=== PATIENT | male | born 1940 | race Caucasian/White ===

== ENCOUNTER 2018-12-13 12:20 | Day surgery (SDC) | payer MEDICARE, OTHER, SELFPAY ==
--- NOTE | 2018-12-13 | PATH_ITS ---
[facility] Accession Number: [id number] . 01 Material submitted: . GE JUNCTION . 02 Diagnosis: Gastroesophageal Junction, Biopsy: Fragments of squamous epithelium with minimal amount of glandular mucosa present. Negative for specialized metaplasia of Mauricio's type esophagus. Negative for dysplasia and malignancy. Negative for squamous intraepithelial eosinophils. MRV/12/14/2018 . 02 Electronically signed: . Gregorio Powers MD, Pathologist NPI- [id number] . 01 Gross description: . Received one formalin-filled container labeled with the patient's name and labeled GE junction. The specimen consists of a 0.3 cm portion of tissue. Entirely submitted in one cassette. ([facility]:[id number]) /[facility] . 02 Pathologist provided ICD-10: R13.10 . 02 CPT . 095911 Performed at: 01 [facility] [address], [place], [place] [id number] MD Jossue Stokes MD Phone: [phone] Performed at: 02 [facility] [address] [place], [place] [id number] MD Soledad Bates MD Phone: [phone]
--- NOTE | 2018-12-13 12:39 | PM.HP.1 ---
History of Present Illness Date Patient Seen: 12/13/18 Chief complaint: EGD Narrative: 78-year-old male who I had initially seen on 10/31/2018 due to esophageal dysphagia. Please refer to my note for further details. The patient has had more solid dysphagia rather than liquid dysphagia. Patient History Medical History Colon polyps (Acute) Constipation (Acute) Diverticulosis (Acute) Esophageal dysphagia (Acute) Hyperlipidemia (Acute) Hypothyroidism (Acute) Surgical History History of colonoscopy (Acute) History of skin surgery (Acute) Meds Home Medications Medication Instructions Recorded Confirmed Type Probiotic 1 cap PO DAILY 12/12/18 12/12/18 History amitriptyline 25 mg PO BEDTIME 12/12/18 12/12/18 History lactulose 15 ml PO DAILY 12/12/18 12/12/18 History levothyroxine [Synthroid] 100 mcg PO DAILY 12/12/18 12/12/18 History linaclotide [Linzess] 72 mcg PO DAILY 12/12/18 12/12/18 History multivitamin 1 tab PO DAILY 12/12/18 12/12/18 History naproxen sodium [Aleve] 440 mg PO BID 12/12/18 12/12/18 History sildenafil [Viagra] 100 mg PO PRN PRN 12/12/18 12/12/18 History simvastatin [Zocor] 10 mg PO DAILY 12/12/18 12/12/18 History Allergies Allergy/AdvReac Type Severity Reaction Status Date / Time tetracycline Allergy Severe Unlisted Verified 12/12/18 14:42 tolnaftate Allergy Severe Unlisted Verified 12/12/18 14:42 Exam Narrative Exam Narrative: General: Patient is well developed, not in apparent distress Cardiovascular: Regular rate and rhythm, no murmurs, rubs, or gallops; no evidence of edema; no palpable abdominal aortic aneurysm Gastrointestinal: Normoactive bowel sounds, soft, nontender, nondistended, no rebound tenderness, no hepatosplenomegaly, no evidence of hernia Assessment & Plan Assessment & Plan narrative: 78-year-old male with history of esophageal dysphagia who is here for an upper endoscopy with possible dilation. Regarding the procedure(s), the risks and potential complications, benefits, and alternatives (including not doing the procedure) were discussed with the patient. The risks include but are not limited to bleeding, splenic injury, infection, perforation which may require surgical intervention, missed lesions, and adverse reactions to sedative medicines. After a question and answer period, the patient agreed to proceed with the procedure(s) and gives informed consent.
[2018-12-13 12:43] VITALS: BMI 25.8
[2018-12-13 12:49] VITALS: BP 139/86; PULSE 88; RESP 15; TEMP 36.3; O2SAT 99
[2018-12-13] MEDS: SODIUM CHLORIDE 0.9% 1,000 ML 200 ML IV (12:58)
--- NOTE | 2018-12-13 13:55 | P.OP.ENDO_ITS ---
Operative Date/Time/Diagnoses Date of procedure: 12/13/18 Procedure Notes Procedure in detail: Surgeon: Tobias Kelly MD Procedure: Esophagogastroduodenoscopy with biopsy and Savary dilation Preoperative diagnosis: Esophageal dysphagia Postoperative diagnosis: LA grade A reflux esophagitis status post biopsy, Schatzki ring status post dilation Medications: Conscious sedation using 5 mg IV of Midazolam and 100 mcg IV of Fentanyl Preanesthesia Assessment An H and P was performed/updated and the Px?s ASA class is 2. The procedure was discussed in detail with the patient. The potential risks and complications including infection, bleeding, missed lesions, perforation, need for surgery in case of perforation, prolonged hospital stay, and were explained. A brief question and answer period was allotted and once all questions were answered, informed consent was obtained. The patient was brought back to the procedure room and placed on standard monitoring. The patient?s vital signs were monitored continuously throughout the entire procedure. Prior to starting, a timeout was performed to confirm the patient?s identity, allergies, medications, and procedure. Procedure in detail The patient was placed in left lateral decubitus position and a bite block was inserted. The tip of the upper endoscope was placed into the mouth and advanced without difficulty under direct visualization into the esophagus. Esophagus: LA grade A reflux esophagitis noted at the GE junction status post biopsy. There was note of a Schatzki ring near the GE junction with a luminal diameter of around 15 mm. The decision was made to perform a Savary dilation using a 48 Estonian dilator which had mild resistance and then a 51 Estonian dilator with moderate resistance. Reinsertion of the upper endoscope was performed which revealed disruption of the Schatzki ring Stomach: No mucosal abnormalities were seen throughout the entire stomach Duodenum: The mucosa appeared normal up to the 2nd portion The patient tolerated the procedure well and will be brought back to the recovery area to be discharged once criteria are met. The total physician intraservice time was 13 min. Complications There were no complications and estimated blood loss was minimal. Recommendations: Resume previous diet Continue outPx medications Use ranitidine 150 mg OTC daily 30 min prior to breakfast for 2 months Follow up pathology results Repeat EGD with dilation if with persistent dysphagia Called to make a office follow up if with persistent symptoms An emergency contact number was given to the patient for any complications related to the procedure
[2018-12-13] MEDS: MIDAZOLAM 5 MG/5 ML VIAL IV (13:56)
[2018-12-13] MEDS: fentaNYL 250 MCG/5 ML INJ IV (13:57)
[2018-12-13 14:10] VITALS: BP 120/76; PULSE 73; RESP 11; O2SAT 95
[2018-12-13 14:15] VITALS: BP 112/72; PULSE 72; RESP 16; O2SAT 93
--- NOTE | 2018-12-13 14:15 | PM.DS.1 ---
History of Present Illness Chief complaint: EGD Narrative: 78-year-old male who I had initially seen on 10/31/2018 due to esophageal dysphagia. Please refer to my note for further details. The patient has had more solid dysphagia rather than liquid dysphagia. Discharge Providers Discharge Date: 12/13/18 Primary care physician: Kye Zuluaga MD Discharge provider: Tobias Kelly MD Exam Vital Signs (past 8 hours): - 12/13/18 12:49 12/13/18 14:10 Temperature 97.4 F L Pulse Rate 88 73 Respiratory Rate 15 11 L Blood Pressure 139/86 120/76 Pulse Oximetry 99 95 Oxygen Delivery Method Room Air Narrative Exam Narrative: General: Patient is well developed, not in apparent distress Cardiovascular: Regular rate and rhythm, no murmurs, rubs, or gallops; no evidence of edema; no palpable abdominal aortic aneurysm Gastrointestinal: Normoactive bowel sounds, soft, nontender, nondistended, no rebound tenderness, no hepatosplenomegaly, no evidence of hernia Discharge Plan Discharge Plan Patient Disposition: Home Discharge Med Rec/Prescriptions Prescriptions: Continued multivitamin Tablet 1 tab PO DAILY RF: 0 simvastatin [Zocor] 10 mg Tablet 10 mg PO DAILY RF: 0 sildenafil [Viagra] 100 mg Tablet 100 mg PO PRN PRN (Reason: Sexual Activity) RF: 0 levothyroxine [Synthroid] 100 mcg Tablet 100 mcg PO DAILY RF: 0 amitriptyline 25 mg Tablet 25 mg PO BEDTIME RF: 0 naproxen sodium [Aleve] 220 mg Capsule 440 mg PO BID PRN (Reason: Pain (Scale Score 4-6)) RF: 0 lactulose 10 gram/15 mL (15 mL) Solution 15 ml PO DAILY RF: 0 Linzess 72 mcg Capsule 72 mcg PO DAILY RF: 0 Probiotic 1 cap PO DAILY RF: 0 Follow up/Referrals: Kye Zuluaga MD [Primary Care Provider] - Discharge Orders: Discharge (Order); Ordered 12/13/18 Ordered By: Tobias Kelly Provider Discharge Instructions Diet: Diet as Tolerated Visit Report/Discharge Packet Stand Alone Forms: EGD Result: [facility] Discharge Data Primary Care Provider: Kye Zuluaga Attending Provider: Tobias Kelly
[2018-12-13 14:21] VITALS: BP 110/73; PULSE 70; RESP 20; O2SAT 93
[2018-12-13 14:38] VITALS: BP 106/71; PULSE 68; O2SAT 94
[2018-12-13 14:40] VITALS: BP 117/77; PULSE 78; RESP 16; TEMP 36
--- NOTE | 2018-12-13 15:02 | SUR.PHASEII ---
Tolerated ice chips, water, coffee and crackers without swallowing issues. Awake and desiring discharge home.
== END 2018-12-13 15:10 | disposition home or self-care (01) ==
PROVIDERS: PCP Family Medicine; Visit Provider Internal Medicine Gastroenterology
PROC: 0DJ08ZZ Inspection of Upper Intestinal Tract, Via Natural or Artificial Opening Endoscopic (ICD-10-PCS; CPT 43235; principal; 2018-12-13 13:30)
DX: R13.14 Dysphagia, pharyngoesophageal phase (principal); K21.0 Gastro-esophageal reflux disease with esophagitis; K22.2 Esophageal obstruction; E78.5 Hyperlipidemia, unspecified; E03.9 Hypothyroidism, unspecified
CPT/HCPCS: 43248; 43239; J2250; J3010